=== PATIENT | female | born 1995 | race Two or more races ===

== ENCOUNTER 2016-11-26 12:12 | Emergency (ER) | payer SELFPAY ==
[~2016-11-26] VITALS: Ht 160 cm; Wt 99.8 kg
[2016-11-26 12:45] VITALS: BP 125/81
== END 2016-11-26 13:00 | disposition home or self-care (01) ==
LOC: ER 12:12
DX: L03.031 Cellulitis of right toe (principal); Z87.440 Personal history of urinary (tract) infections

== ENCOUNTER 2017-09-01 23:52 | Emergency (ER) | payer SELFPAY ==
[~2017-09-01] VITALS: Ht 162.6 cm; Wt 99.8 kg
[2017-09-02 00:17] VITALS: BP 128/70
[2017-09-02] MEDS ORDERED: DEXAMETHASONE SOD PHOS 10MG/1ML VIAL INJ IV ONE (03:00)
[2017-09-02] MEDS ORDERED: ACETAMINOPHEN 325 MG TAB PO ONE (03:00)
[2017-09-02] MEDS ORDERED: cefTRIAXone SOD 1,000 MG VL IM ONE (03:00)
[2017-09-02] MEDS ORDERED: DEXAMETHASONE SOD PHOS 10MG/1ML VIAL INJ IM ONE (03:00)
== END 2017-09-02 04:11 | disposition home or self-care (01) ==
LOC: ER 23:56
DX: J02.9 Acute pharyngitis, unspecified (principal); H66.93 Otitis media, unspecified, bilateral
CPT/HCPCS: 96372; 99284; J0696; J1100

== ENCOUNTER 2017-10-31 14:39 | Emergency (ER) | payer SELFPAY ==
[~2017-10-31] VITALS: Ht 160 cm; Wt 99.8 kg
[2017-10-31 15:46] VITALS: BP 153/90
== END 2017-10-31 16:48 | disposition home or self-care (01) ==
LOC: ER 14:49
DX: H66.93 Otitis media, unspecified, bilateral (principal)

== ENCOUNTER 2025-03-08 13:07 | Emergency (ER) | payer BC, MEDICAID, OTHER ==
[~2025-03-08] VITALS: Ht 167.6 cm; Wt 125.2 kg
--- NOTE | 2025-03-08 13:40 | ED.PDOC ---
HPI (NEURO) HPI Comments 29 y/o F, with PMHx of DM presents to the ED for CC left-sided facial numbness. Patient states, she has been experiencing left-sided facial numbness sudden onset, (03/05/25). Patient reports, symptoms maybe related to increased stress levels, possibly d/t work related stressors. Patient comments on, associated symptoms of facial tingling and blurred vision. Patient denies nausea, vomiting, headache, dizziness, or trouble walking. No other symptoms or modifying factors are present at this time. Chief Complaint: Left Sided Weakness Time Seen by MD: 13:25 Primary Care Provider: NONE Reviewed Notes: Nurses Notes, Medications, Allergies Information Source: Friend Mode of Arrival: Ambulatory Severity: Moderate Dizziness/Weakness Severity: Does not affect activitie Timing: Days Duration: Since onset Prehospital treatment: None Weakness Location: Facial (left sided) Onset: At rest Circumstances: Spontaneous Before: Normal During: Awake After: Normal Mentation History of: DM Modifying factors: Nothing Associated Signs and Symptoms: Numbness Past Medical History PAST MEDICAL HISTORY: DM, UTI'S Surgical History: Denies all surgeries 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 History: No 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 SHEETER History Family History Family History: No family hx of DM Social History Smoker: Non-Smoker Alcohol: Denies ETOH Use Drugs: Denies Drug Use Lives In: Home Constitutional: denies: chills, diaphoresis, fatigue, fever, malaise, sweats, weakness, others EENTM: denies: blurred vision, double vision, ear bleeding, ear discharge, ear drainage, ear pain, ear ringing, eye pain, eye redness, hearing loss, mouth pain, mouth swelling, nasal discharge, nose bleeding, nose congestion, nose pain, photophobia, tearing, throat pain, throat swelling, voice changes, others Respiratory: denies: cough, hemoptysis, orthopnea, SOB at rest, shortness of breath, SOB with excertion, stridor, wheezing, others Cardiovascular: denies: chest pain, dizzy spells, diaphoresis, Dyspnea on exertion, edema, irregular heart beat, left arm pain, lightheadedness, palpitations, PND, syncope, others Gastrointestinal: denies: abdomen distended, abdominal pain, blood streaked bowels, constipated, diarrhea, dysphagia, difficulty swallowing, hematemesis, melena, nausea, poor appetite, poor fluid intake, rectal bleeding, rectal pain, vomiting, others Genitourinary: denies: abnormal vagina bleeding, burning, dyspareunia, dysuria, flank pain, frequency, hematuria, incontinence, pain, , vagina discharge, urgency, others Neurological: reports: left sided numbness (facial); denies: dizziness, fainting, headache, left sided weakness, numbness, paresthesia, pre-existing deficit, right sided numbness, right sided weakness, seizure, speech problems, tingling, tremors, weakness, others Musculoskeletal: denies: back pain, gout, joint pain, joint swelling, muscle pa in, muscle stiffness, neck pain, others Integumetry: denies: bruises, change in color, change in hair/nails, dryness, laceration, lesions, lumps, rash, wounds, others Allergic/Immunocompromised: denies: Difficulty Healing, Frequent Infections, Hives, Itching, others Hematologic/Lymphatic: denies: anemia, blood clots, easy bleeding, easy bruising, swollen glands, others Endocrine: denies: excessive hunger, excessive sweating, excessive thirst, excessive urination, flushing, intolerance to cold, intolerance to heat, unexplained weight gain, unexplained weight loss, others Psychiatric: denies: anxiety, bipolar disorder, depression, hopeless, panic disorder, schizophrenia, sleepless, suicidal, others All Other Systems: Reviewed and Negative Physical Exam General Appearance: Moderate Distress HEENT: Normal ENT Inspection, Pharynx Normal, TMs Normal Neck: Full Range of Motion, Non-Tender, Normal, Normal Inspection Respiratory: Chest Non-Tender, Lungs Clear, No Accessory Muscle Use, No Respiratory Distress, Normal Breath Sounds Cardiovascular: No Edema, No JVD, No Murmur, No Gallop, Normal Peripheral Pulses, Regular Rate/Rhythm Breast Exam: Deferred Gastrointestinal: No Organomegaly, Non Tender, No Pulsatile Mass, Normal Bowel Sounds, Soft Genitalia: Deferred Pelvic: Deferred Rectal: Deferred Extremities: No calf tenderness, Normal capillary refill, Normal inspection, Normal range of motion, Non-tender, No pedal edema Musculoskeletal : Apperance: Normal Neurologic: Alert, creative intern II-XII nml as Tested, No Motor Deficits, Normal Affect, Normal Mood, No Sensory Deficits Cerebellar Function: Normal Reflexes: Normal Skin: Dry, Normal Color, Warm Peripheral Pulses: 3+ Radial (R), 3+ Radial (L) Lymphatic: No Adenopathy Was a procedure done? Was a procedure done?: No Differential Diagnosis (SZ) Seizure: Psychogenic Seizure, Closed Head Injury, CVA/TIA General Weakness: Dehydration, Electrolyte imbalance X-Ray, Labs, Meds, VS Vital Signs Date Time Temp Pulse Resp B/P (MAP) Pulse Ox O2 Delivery O2 Flow Rate FiO2 03/08/25 15:41 98.4 92 14 142/93 (109) 97 98.4 03/08/25 13:25 91 03/08/25 13:11 97.0 107 16 131/86 97 97.0 Lab Test 03/08/25 13:29 Range/Units POC Glucose 89 70-106 mg/dl Patient alert. Complaining of left side weakness. [place]ristine physical examination. Vitals stable. No neurological deficit. Good muscle strength. CT of the head reviewed does not show any acute changes. Possible stress-induced. Explained to the patient. Was told to follow up with her primary care physician. Was told to come back if there is any problem. Time of 1ST Reevaluation: 13:55 Reevaluation 1ST: Improved Time of 2ND Reevaluation: 15:59 Reevaluation 2ND: Improved Patient Education/Counseling: Diagnosis, Treatment Family Education/Counseling: No Family Present Departure 1 Departure Time of Disposition: 16:00 Impression: Primary Impression: Stress disorder, acute Disposition: 01 HOME / SELF CARE / HOMELESS Condition: Good Discharged With: Self Critical Care Note Critical Care Time?: No Stability Stability form required: No Heart Score Heart Score: Heart Score Response (Comments) Value History N/A 0 EKG N/A 0 Age N/A 0 Risk Factors N/A 0 Troponin N/A 0 Total 0 I personally scribed for GERARDO BRYSON MD ([email or web address]) on 03/08/25 at 13:40. Electronically submitted by Elis Baptiste ([email or web address]). GERARDO BRYSON MD Mar 08, 2025 13:40
--- NOTE | 2025-03-08 14:26 | DVH ---
EXAM: CT HEAD WITHOUT CONTRAST INDICATION: tia TECHNIQUE: CT of the head without intravenous contrast. Radiation Dose Information: CT Dose: CTDI volume is 54.87 mGy. Dose-length product is 879.62 mGy*cm The dose indicators for CT are the volume Computed Tomography (CT) Dose Index (CTDIvol) and the Dose Length Product (DLP), and are measured in units of mGy and mGy-cm, respectively. These indicators are not patient dose, but values generated from the CT scanner acquisition factors. The report includes radiation exposure data for exposures received during this examination. COMPARISON: None FINDINGS: There is no evidence of acute intracranial hemorrhage, extra-axial collection, mass effect, midline s hift, herniation or hydrocephalus. The ventricles, sulci and cisterns are age appropriate. The mon-white differentiation is intact. Patchy periventricular and subcortical white matter hypoattenuation is nonspecific but may be related to small vessel ischemic disease. The visualized paranasal sinuses and mastoid air cells are clear. The surrounding soft tissues and osseous structures are unremarkable. IMPRESSION: 1. No acute intracranial abnormality. HS:Y
[2025-03-08 15:41] VITALS: BP 142/93; PULSE 92; RESP 14; TEMP 98.4; O2SAT 97
[2025-03-08 16:35] LABS: Urine Protein, UAD Negative (Negative)
== END 2025-03-08 16:13 | disposition home or self-care (01) ==
LOC: ER 13:07
DX: F43.0 Acute stress reaction (principal); E11.9 Type 2 diabetes mellitus without complications; Z87.440 Personal history of urinary (tract) infections
CPT/HCPCS: 70450; 81001; 82947; 82962

== ENCOUNTER 2025-06-09 10:09 | Emergency (ER) | payer BC ==
[~2025-06-09] VITALS: Ht 160 cm; Wt 120.7 kg
[2025-06-09] MEDS ORDERED: ACETAMINOPHEN 500 MG TAB or CAP PO ONE (10:30)
[2025-06-09] MEDS: LIDOCAINE 5% TOPICAL PATCH TOP ONE (10:30)
--- NOTE | 2025-06-09 11:05 | ED.PDOC ---
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 Patient states, she has been experiencing lower back pain with associated vaginal bleeding x1week. Patient reports, to currently be approximately x6-7 weeks ; endorses LMP to have been on (04/18/25). Patient relays, to have had a positive at home test at approximately 6 weeks of , patient repeated at home test yesterday (06/08/25) and is now negative. Patient describes, bleeding quality to be "spotting" in nature. 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 Patient denies passing products of conception, nausea, vomiting, or abdominal pain. No other symptoms or modifying factors are present at this time. Chief Complaint: Back Pain Time Seen by MD: 10:50 Reviewed Notes: Nurses Notes, Medications, Allergies Allergies: Coded Allergies: NO KNOWN ALLERGIES (Unverified , 03/21/13) Information Source: Patient Mode of Arrival: Ambulatory Timing: Weeks Prehospital treatment: None Severity: Moderate Vaginal Discharge: None Vaginal Lesions: None Vaginal Mass: None Onset Of Mass/Bleeding: Spontaneous Sexual Activity: Last Consensual [place]: Unknown Control: None Blood Type: Unknown Symptoms of Possible : None Associated Signs and Symptoms: Vaginal Bleeding, Other (back pain) Past Medical History PAST MEDICAL HISTORY: DM, UTI'S Surgical History: Denies all surgeries 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: No 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 Family History Family History: No family hx of DM Social History Smoker: Non-Smoker Alcohol: Denies ETOH Use Drugs: Denies Drug Use Lives In: Home Constitutional: denies: chills, diaphoresis, fatigue, fever, malaise, sweats, weakness, others EENTM: denies: blurred vision, double vision, ear bleeding, ear discharge, ear drainage, ear pain, ear ringing, eye pain, eye redness, hearing loss, mouth pain, mouth swelling, nasal discharge, nose bleeding, nose congestion, nose pain, photophobia, tearing, throat pain, throat swelling, voice changes, others Respiratory: denies: cough, hemoptysis, orthopnea, SOB at rest, shortness of breath, SOB with excertion, stridor, wheezing, others Cardiovascular: denies: chest pain, dizzy spells, diaphoresis, Dyspnea on exertion, edema, irregular heart beat, left arm pain, lightheadedness, palpita tions, PND, syncope, others Gastrointestinal: denies: abdomen distended, abdominal pain, blood streaked kimberli wels, constipated, diarrhea, dysphagia, difficulty swallowing, hematemesis, melena, nausea, poor appetite, poor fluid intake, rectal bleeding, rectal pain, vomiting, others Genitourinary: reports: abnormal vagina bleeding; denies: burning, dyspareunia, dysuria, flank pain, frequency, hematuria, incontinence, pain, , vagina discharge, urgency, others Neurological: denies: dizziness, fainting, headache, left sided numbness, left sided weakness, numbness, paresthesia, pre-existing deficit, right sided numbness, right sided weakness, seizure, speech problems, tingling, tremors, weakness, others Musculoskeletal: reports: back pain; denies: gout, joint pain, joint swelling, muscle pain, muscle stiffness, neck pain, others Integumetry: denies: bruises, change in color, change in hair/nails, dryness, laceration, lesions, lumps, rash, wounds, others Allergic/Immunocompromised: denies: Difficulty Healing, Frequent Infections, Hives, Itching, others Hematologic/Lymphatic: denies: anemia, blood clots, easy bleeding, easy bruising, swollen glands, others Endocrine: denies: excessive hunger, excessive sweating, excessive thirst, excessive urination, flushing, intolerance to cold, intolerance to heat, unexplained weight gain, unexplained weight loss, others Psychiatric: denies: anxiety, bipolar disorder, depression, hopeless, panic disorder, schizophrenia, sleepless, suicidal, others All Other Systems: Reviewed and Negative Physical Exam General Appearance: No Apparent Distress, Normal HEENT: Normal ENT Inspection, Pharynx Normal Neck: Full Range of Motion, Non-Tender, Normal, Normal Inspection Respiratory: Chest Non-Tender, Lungs Clear, No Accessory Muscle Use, No Respiratory Distress, Normal Breath Sounds Cardiovascular: No Edema, No Murmur, No Gallop, Normal Peripheral Pulses, Regular Rate/Rhythm Breast Exam: Deferred Gastrointestinal: No Organomegaly, Non Tender, No Pulsatile Mass, Normal Bowel Sounds, Soft Genitalia: Deferred Pelvic: Deferred, Other (vaginal exam deferred by patient) Rectal: Deferred Extremities: No calf tenderness, Normal capillary refill, Normal inspection, Normal range of motion, No pedal edema Musculoskeletal : Location: Bilateral Extremity Location: Back Apperance: Tenderness (lower lumbar perispinal tenderness) Neurologic: Alert, property and casualty insurance agent II-XII nml as Tested, No Motor Deficits, Normal Affect, Normal Mood, No Sensory Deficits Cerebellar Function: Normal Reflexes: Normal Skin: Dry, Normal Color, Warm Lymphatic: No Adenopathy Was a procedure done? Was a procedure done?: No Differential Diagnosis (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) Vaginal Bleeding: - Incomplete, - Inevitable, - Threatened Comments Musculoskeletal back pain X-Ray, Labs, Meds, VS Vital Signs Date Time Temp Pulse Resp B/P (MAP) Pulse Ox O2 Delivery O2 Flow Rate FiO2 06/09/25 10:14 97.5 105 16 134/83 98 97.5 Lab Test 06/09/25 11:10 Range/Units White Blood Count 10.6 4.4-10.8 10^3/uL Red Blood Count 5.01 4.0-5.20 10^6/uL Hemoglobin 15.5 12.2-16.2 g/dL Hematocrit 45.0 36.0-46.0 % Mean Corpuscular Volume 89.9 80.0-100.0 fL Mean Corpuscular Hemoglobin 31.0 28.0-32.0 pg Mean Corpuscular Hemoglobin Concent 34.5 32.0-36.0 g/dL Red Cell Distribution Width 12.9 11.8-14.3 % Platelet Count 232 140-450 10^3/uL Mean Platelet Volume 8.9 6.9-10.8 fL Neutrophils (%) (Auto) 58.7 37.0-80.0 % Lymphocytes (%) (Auto) 31.7 10.0-50.0 % Monocytes (%) (Auto) 7.6 0.0-12.0 % Eosinophils (%) (Auto) 1.1 0.0-7.0 % Basophils (%) (Auto) 0.9 0.0-2.0 % Neutrophils # (Auto) 6.2 1.6-8.6 10 ^3/uL Lymphocytes # (Auto) 3.3 0.4-5.4 10 ^3/uL Monocytes # (Auto) 0.8 0-1.3 10 ^3/uL Eosinophils # (Auto) 0.1 0-0.8 10 ^3/uL Basophils # (Auto) 0.1 0-0.2 10 ^3/uL Nucleated Red Blood Cells 0.0 % Sodium Level 143 136-145 mmol/L Potassium Level 4.0 3.5-5.1 mmol/L Chloride Level 112 H 98-107 mmol/L Carbon Dioxide Level 19 L 20-31 mmol/L Anion Gap 12 5-15 Blood Urea Nitrogen 9 9-23 mg/dL Creatinine 0.72 0.550-1.02 mg/dL Glomerular Filtration Rate Calc 116 >90 mL/min BUN/Creatinine Ratio 12.5 10.0-20.0 Serum Glucose 99 74-106 mg/dL Calcium Level 9.5 8.7-10.4 mg/dL Beta HCG, Quantitative 5.3 H 1.5-4.2 mIU/mL Time of 1ST Reevaluation: 11:20 Reevaluation 1ST: Unchanged Patient Education/Counseling: Diagnosis, Treatment Family Education/Counseling: Diagnosis, Treatment Departure 1 Departure Time of Disposition: 11:16 (30-year-old female past medical history of diabetes who was reporting recent positive urine test, however, now stating she has a negative urine test. Given her last menstrual cycle and lower back pain and abnormal vaginal bleeding over the past week if she now has a negative test suspect that this is likely related to a spontaneous miscarriage that is completing. Patient's beta hCG is 5.3, which is almost back to negative. Denying any urinary symptoms, urinalysis was ordered, however, patient did not supply a sample, denies any urinary symptoms, does not seem consistent with UTI or pyelonephritis. Given such a low beta HCG level with prior positive test suspect that the patient is completing a miscarriage. Does not require an ultrasound at this low serum beta hCG level. Was treated for discomfort with topical lidocaine patch, oral Tylenol, ibuprofen. Stable for discharge further outpatient symptomatic management.) Impression: Primary Impression: Low back pain Additional Impression: Spontaneous miscarriage Disposition: HOME / SELF CARE / HOMELESS Condition: Stable Additional Instructions: Your serum beta hCG (hormone level) was 5.3 which is almost back to negative. You likely recently experienced a spontaneous miscarriage as you reported prior positive test with now negative urine test and low beta HCG level. Please take Tylenol and/or ibuprofen as needed for discomfort. Discharged With: Self Critical Care Note Critical Care Time?: No Stability Stability form required: No Heart Score Heart Score: Heart Score Response (Comments) Value History N/A 0 EKG N/A 0 Age N/A 0 Risk Factors N/A 0 Troponin N/A 0 Total 0 I personally scribed for ZOHAIB PIERRE MD ([email or web address]) on 06/09/25 at 11:05. Electronically submitted by Elis Baptiste ([email or web address]). ZOHAIB PIERRE MD Jun 09, 2025 11:05
[2025-06-09 11:25] LABS: Hematocrit 45.0 % (36.0-46.0); Hemoglobin 15.5 g/dL (12.2-16.2); Mean Corpuscular Hemoglobin 31.0 pg (28.0-32.0); Mean Corpuscular Volume 89.9 fL (80.0-100.0); Nucleated Red Blood Cells % 0.0 %
[2025-06-09 11:32] LABS: Potassium 4.0 mmol/L (3.5-5.1); Sodium 143 mmol/L (136-145)
[2025-06-09 11:33] LABS: Anion Gap 12 (5-15); Calcium 9.5 mg/dL (8.7-10.4); Carbon Dioxide 19 mmol/L (20-31); Chloride 112 mmol/L (98-107)
[2025-06-09 11:38] LABS: BUN/Creatinine Ratio 12.5 (10.0-20.0); Glucose 99 mg/dL (74-106)
[2025-06-09 11:41] LABS: Blood Urea Nitrogen 9 mg/dL (9-23)
[2025-06-09 13:06] LABS: Urine Budding Yeast OCCASIONAL /hpf (None Seen); Urine Protein, UAD Negative (Negative)
[2025-06-09] MEDS: IBUPROFEN 800 MG TAB PO ONE (14:23)
[2025-06-09 14:29] VITALS: BP 132/95; PULSE 97; RESP 16; TEMP 97.9; O2SAT 97
== END 2025-06-09 14:33 | disposition home or self-care (01) ==
LOC: ER 10:09
DX: O26.891 Other specified pregnancy related conditions, first trimester (principal); O03.9 Complete or unspecified spontaneous abortion without complication; M54.50 Low back pain, unspecified; Z3A.01 Less than 8 weeks gestation of pregnancy
CPT/HCPCS: 36415; 80048; 81001; 81025; 84702; 85025; 86850; 86900; 86901